=== PATIENT | male | born 1975 | race Caucasian/White ===

== ENCOUNTER 2017-04-16 14:00 | Inpatient (IN) ==
--- NOTE | 2017-04-16 15:47 | XRay Report ---
CLINICAL INFORMATION: Preop COMPARISON: None. FINDINGS:The heart size, mediastinum and pulmonary vessels are unremarkable. The lungs are clear. There are no effusions. The bones and soft tissues are within normal limits. IMPRESSION: Normal chest. Interpreted and Authenticated by: Anthony Ohara 04/16/17
[2017-04-16 16:27] LABS: Basophils # (Auto) 0 K/mcL (0.0-0.3); Basophils % (Auto) 0.3 % (0.0-2.0); Eosinophils # (Auto) 0.3 K/mcL (0.0-0.7); Eosinophils % (Auto) 2.6 % (0.0-7.0); Granulocytes % (Auto) 64.6 % (38.0-78.0); Lymphocytes # (Auto) 2.4 K/mcL (1.5-4.8); Lymphocytes % (Auto) 23.6 % (15.5-49.0); Mean Cell Volume 89.7 fL (80.0-100.0); Mean Corpuscular Hemoglobin 30.5 pg (26.0-34.0); Monocytes # (Auto) 0.9 K/mcL (0.1-0.9); Monocytes % (Auto) 8.9 % (1.0-12.0); Platelet Count 181 K/mcL (140-440); RBC 4.97 M/mcL (4.50-5.90); Red Cell Distribution Width 13.2 % (11.5-14.5)
[2017-04-16 17:13] LABS: ALT/SGPT 18 U/l (0-40); Albumin 4.2 gm/dL (3.2-5.2); Albumin/Globulin Ratio 1.4 (1.0-2.3); Alkaline Phosphatase 68 U/L (39-117); Blood Urea Nitrogen 16 mg/dl (6-20)
[2017-04-22] MEDS ORDERED: LEVOFLOXACIN 750 MG/150 ML BAG IV SCH (07:00)
[2017-04-22] MEDS ORDERED: metroNIDAZOLE 500 MG/100 ML BAG IV SCH (07:00)
[2017-04-22] MEDS ORDERED: fentaNYL 250 MCG/5 ML VIAL IV ONE (09:40)
[2017-04-22] MEDS ORDERED: HYDROmorphone 2 MG/ML SYRINGE IV ONE (09:40)
[2017-04-22] MEDS ORDERED: PROPOFOL 200 MG/20 ML VIAL IV ONE (09:40)
[2017-04-22] MEDS ORDERED: MIDAZOLAM 5 MG/5 ML VIAL IV ONE (09:40)
[2017-04-22] MEDS ORDERED: KETAMINE 100 MG/ML ML IV ONE (09:40)
[2017-04-22] MEDS ORDERED: ePHEDrine 50 MG/ML AMPUL IV ONE (09:40)
[2017-04-22] MEDS ORDERED: DEXAMETHASONE 10 MG/ML VIAL IV ONE (09:40)
[2017-04-22] MEDS ORDERED: ROCURONIUM 10 MG/ML ML IV ONE (09:40)
[2017-04-22] MEDS ORDERED: LIDOCAINE HCL/PF 100 MG/5 ML SYRINGE IV ONE (09:40)
[2017-04-22] MEDS ORDERED: METOPROLOL TARTRATE 5 MG/5 ML VIAL IV ONE (09:40)
[2017-04-22] MEDS ORDERED: ONDANSETRON 4 MG/2 ML VIAL IV ONE (09:40)
[2017-04-22] MEDS ORDERED: ONDANSETRON 4 MG/2 ML VIAL IV PRN ×2 (10:42→13:24)
[2017-04-22] MEDS ORDERED: LABETALOL 5 MG/ML ML IV PRN (10:42)
[2017-04-22] MEDS ORDERED: IPRATROPIUM/ALBUTEROL 3 ML AMPUL.NEB NEB PRN (10:42)
[2017-04-22] MEDS ORDERED: FLUMAZENIL 0.1 MG/ML ML IV PRN (10:42)
[2017-04-22] MEDS ORDERED: ePHEDrine 50 MG/ML AMPUL IV PRN (10:42)
[2017-04-22] MEDS ORDERED: fentaNYL 100 MCG/2 ML VIAL IV PRN (10:42)
[2017-04-22] MEDS ORDERED: HYDROmorphone 2 MG/ML SYRINGE IV PRN (10:42)
[2017-04-22] MEDS ORDERED: LACTATED RINGERS 250 ML IV PRN (10:42)
[2017-04-22] MEDS ORDERED: METHOCARBAMOL 1,000 MG/10 ML VIAL IV PRN (10:42)
[2017-04-22] MEDS ORDERED: METOCLOPRAMIDE 10 MG/2 ML VIAL IV PRN (10:42)
[2017-04-22] MEDS ORDERED: BENZOCAINE/MENTHOL 1 LOZENGE PO PRN (10:42)
[2017-04-22] MEDS ORDERED: METOPROLOL TARTRATE 5 MG/5 ML VIAL IV PRN (10:42)
[2017-04-22] MEDS ORDERED: MEPERIDINE 50 MG/ML SYRINGE IM PRN (10:42)
[2017-04-22] MEDS ORDERED: NALOXONE HCL 0.4 MG/ML VIAL IV PRN (10:42)
[2017-04-22] MEDS ORDERED: diphenhydrAMINE 50 MG/ML VIAL IV PRN (10:42)
[2017-04-22] MEDS ORDERED: MEPERIDINE 25 MG/ML SYRINGE IV PRN (10:42)
[2017-04-22] MEDS ORDERED: LACTATED RINGERS 1,000 ML IV SCH (10:45)
[2017-04-22] MEDS ORDERED: metroNIDAZOLE 500 MG/100 ML BAG IV ONE (10:52)
[2017-04-22] MEDS ORDERED: LEVOFLOXACIN 750 MG/150 ML BAG IV ONE (11:57)
--- NOTE | 2017-04-22 12:30 | Brief Operative Note ---
Date of procedure: 04/22/17 Pre-op diagnosis: recurrent diverticulitis Post-op diagnosis: other (recurrent diverticulitis) Procedure: SIGMOID COLECTOMY Grafts/Implants: No (J P DRAIN X1 ) Anesthesia: GETA Findings: 2 AREAS OF INFLAMMATION IN SIGMOID COLON AND MESENTERY Complications: none Surgeon: Ericka Parra Estimated blood loss (cc): 50 Specimens Removed/Pathology: other (SIGMOID COLON) Condition: stable Disposition: PACU
[2017-04-22] MEDS: 0.9 % SODIUM CHLORIDE 10 ML SYRINGE IV SCH ×2 (14:27→23:18)
[2017-04-22] MEDS: 0.9 % SODIUM CHLORIDE 1,000 ML IV SCH ×2 (14:28→23:48)
[2017-04-22] MEDS: HYDROmorphone 2 MG/ML SYRINGE IV PRN ×2 (15:00→17:18)
[2017-04-22] MEDS: METOCLOPRAMIDE 10 MG/2 ML VIAL IV SCH ×2 (18:06→23:48)
[2017-04-22] MEDS: metroNIDAZOLE 500 MG/100 ML BAG IV SCH ×2 (18:06→23:48)
[2017-04-22 19:12] LABS: ALT/SGPT 31 U/l (0-40); Albumin 3.9 gm/dL (3.2-5.2); Albumin/Globulin Ratio 1.3 (1.0-2.3); Alkaline Phosphatase 63 U/L (39-117); Bilirubin,Direct < 0.2 mg/dL (0.0-0.3); Blood Urea Nitrogen 12 mg/dl (6-20); Gamma Glutamyl Transpeptidase 44 U/L (8-61); Magnesium 1.6 mg/dL (1.6-2.5); Uric Acid 5.2 mg/dL (2.5-8.0)
[2017-04-22] MEDS: ACETAMINOPHEN 1,000 MG/100 ML BOTTLE IV PRN (19:48)
[2017-04-23] MEDS: ACETAMINOPHEN 1,000 MG/100 ML BOTTLE IV PRN ×3 (01:27→19:48)
[2017-04-23] MEDS: HYDROmorphone 2 MG/ML SYRINGE IV PRN ×3 (04:33→22:45)
[2017-04-23] MEDS: METOCLOPRAMIDE 10 MG/2 ML VIAL IV SCH ×3 (06:14→17:58)
[2017-04-23] MEDS: metroNIDAZOLE 500 MG/100 ML BAG IV SCH ×3 (06:14→17:58)
[2017-04-23 06:18] LABS: Basophils # (Auto) 0 K/mcL (0.0-0.3); Basophils % (Auto) 0.3 % (0.0-2.0); Eosinophils # (Auto) 0 K/mcL (0.0-0.7); Eosinophils % (Auto) 0 % (0.0-7.0); Granulocytes % (Auto) 80.7 % (38.0-78.0); Lymphocytes # (Auto) 1.3 K/mcL (1.5-4.8); Lymphocytes % (Auto) 9.8 % (15.5-49.0); Mean Cell Volume 90.1 fL (80.0-100.0); Mean Corpuscular HGB Conc 34.4 g/dL (31.0-36.0); Monocytes # (Auto) 1.3 K/mcL (0.1-0.9); Monocytes % (Auto) 9.2 % (1.0-12.0); Platelet Count 188 K/mcL (140-440); RBC 4.68 M/mcL (4.50-5.90); Red Cell Distribution Width 13.2 % (11.5-14.5)
[2017-04-23 06:27] LABS: ALT/SGPT 25 U/l (0-40); Albumin 3.9 gm/dL (3.2-5.2); Albumin/Globulin Ratio 1.5 (1.0-2.3); Alkaline Phosphatase 59 U/L (39-117); Bilirubin,Direct < 0.2 mg/dL (0.0-0.3); Blood Urea Nitrogen 11 mg/dl (6-20); Gamma Glutamyl Transpeptidase 40 U/L (8-61); Magnesium 1.6 mg/dL (1.6-2.5)
[2017-04-23 08:17] LABS: Band Neutrophils % 2 % (0-10); Lymphocytes % 13 % (15-49); Monocytes % (Manual) 7 % (1-12); Platelet Estimate NORMAL (NORMAL); RBC Morphology NORMAL (NORMAL); Segmented Neutrophils % 77 % (38-78)
[2017-04-23] MEDS: 0.9 % SODIUM CHLORIDE 10 ML SYRINGE IV SCH ×3 (09:38→23:56)
[2017-04-23] MEDS: 0.9 % SODIUM CHLORIDE 1,000 ML IV SCH ×3 (09:38→22:52)
[2017-04-23] MEDS: LEVOFLOXACIN 500 MG/100 ML BAG IV SCH (09:59)
[2017-04-23] MEDS: KETOROLAC 30 MG/ML VIAL IV SCH ×2 (10:08→22:45)
--- NOTE | 2017-04-23 13:13 | Operative Note ---
DATE OF OPERATION: 04/22/2017 PREOPERATIVE DIAGNOSIS: Recurrent diverticulitis. POSTOPERATIVE DIAGNOSIS: Recurrent diverticulitis. PROCEDURE: Sigmoid colectomy. SURGEON: Ericka Parra MD FINDINGS: Two areas of inflammation in the sigmoid colon and the sigmoid colon mesentery. DESCRIPTION OF PROCEDURE: The patient's abdomen was prepped and draped in a sterile field. A timeout procedure was carried out as per protocol. A midline incision was made. Exploration of the abdomen revealed polycystic liver and kidneys. The colon was somewhat redundant. There were two areas of inflammation that was noted with thickening of the pericolonic fat and mesentery and the wall of the sigmoid colon. This was in the proximal and mid sigmoid colon. The rest of the colon was unremarkable except for scattered diverticula. Small bowel was unremarkable. A Bookwalter retractor was placed and the abdomen was packed off. The sigmoid colon was mobilized along its lateral attachment and the mobilization continued into the pelvis to the proximal rectum. The mobilization extended up to the splenic flexure, though the entire splenic flexure was not mobilized. A point was chosen proximal and distal to the two inflamed areas. The mesentery was scored and these areas were divided using the contour stapler. The mesentery was then divided between Shellie clamps and the specimen was removed. Vessels were tied with 2-0 Silk suture. Irrigation was carried out. The end of the rectum was then sutured to the side of the colon. The end of the colon was stapled using a PA60 stapler so that it would have two staple lines. The end of the rectum was then opened and the back wall of the rectum was sutured to the side of the colon with 2-0 Prolene. An opening was made in the wall of the colon along the anterior tinea. Anastomosis was completed using an inner row of running, locking 2-0 Monocryl and an outer row of running 2-0 Prolene. Irrigation was carried out again. There was no evidence of leak. Sponge, needle, instrument and blade counts were verified as correct. Mesenteric defect was closed with interrupted 3-0 Silk. Gowns were changed. Final irrigation was carried out and the fluid was clear. MARIA ISABEL drain was placed in the pelvis beneath the anastomosis. The drain was brought out in the right lower quadrant. Sponge, needle, instrument and blade counts were correct. Fascia was closed using running #1 Prolene. Subcutaneous tissue was irrigated and closed with 2-0 Monocryl. Skin incision was closed with kimberly. Dressing was placed. Patient tolerated the procedure well. The drain was secured with 2-0 Nylon. Patient was awakened, extubated and transferred to the Post-Anesthetic Care Unit in stable satisfactory condition. LCS:kathrine Job ID: [id number] Doc ID: [id number] Ericka Parra M.D.
[2017-04-23] MEDS ORDERED: LORazepam 2 MG/ML VIAL IV PRN (16:35)
--- NOTE | 2017-04-23 16:40 | General Surgery Progress Note ---
Subjective Patient reports: feels better, pain is less, no flatus, no bowel movement, afebrile Narrative: Note initiated : 04/23/17 at 4:38 pm Service Date, if different from initiated Date: [] Patient: Yvan Benson 42 y/o M admitted on 04/22/17 for Segmental Left Colectomy. Chief Complaint: [Patient is stable. He is alert and awake and oriented. He has periods of increased anxiety when standing and trying to move. It does not appear to be associated with any medications. It only lasts a few minutes and then resolves. His abdominal pain is well controlled and he denies having nausea. He has been afebrile all day. His MARIA ISABEL drainage is serosanguineous.] Objective Temp Pulse Resp BP Pulse Ox 97.2 F 93 H 16 145/92 95 04/23/17 16:00 04/23/17 16:00 04/23/17 16:00 04/23/17 16:00 04/23/17 16:00 - Additional Data Intake & Output - Last 24 hours: Intake & Output 04/21/17 04/22/17 04/23/17 04/24/17 05:59 05:59 05:59 05:59 Intake Total 4220 / 4220 1400 / 1400 Output Total 2225 / 2225 1420 / 1420 Balance 1994 - Weight 246 lb 246 lb - General physical appearance well developed, no distress - Eyes PERRL - ENT no congestion - Neck no venous distension - Respiratory clear to auscultation - Cardiovascular Cardiovascular exam: Present: normal rate and rhythm, RRR, +S1, +S2. Absent: gallop, JVD, systolic murmur - Abdomen tender (Abdomen is mildly distended but with active bowel sounds; the incision looks good and the MARIA ISABEL drainage is serosanguineous) - Integumentary no rash, no growths, no abnormal pigmentation - Neurologic normal coordination, normal sensation - Musculoskeletal normal gait, normal posture - Psychiatric oriented to time, oriented to person, oriented to place, speech is normal, memory intact - Labs 04/23/17 04:41 04/23/17 04:41 Diabetes panel 04/22/17 04/23/17 Range/Units 18:13 04:41 Sodium 140 139 (133-145) mmol/L Potassium 4.3 3.7 (3.3-5.1) mmol/L Chloride 100 101 (96-108) mmol/L Carbon Dioxide 26 25 (22-30) mmol/L BUN 12 11 (6-20) mg/dl Creatinine 0.9 0.9 (0.7-1.2) mg/dl Glucose 136 H 122 H (70-105) mg/dL Calcium 8.7 8.7 (8.6-10.4) mg/dl AST 32 23 (0-37) U/l ALT 31 25 (0-40) U/l Alkaline Phosphatase 63 59 (39-117) U/L Total Protein 6.8 6.5 (5.9-8.4) gm/dL Albumin 3.9 3.9 (3.2-5.2) gm/dL Triglycerides 80 89 (<150) mg/dl Calcium panel 04/22/17 04/23/17 Range/Units 18:13 04:41 Calcium 8.7 8.7 (8.6-10.4) mg/dl Phosphorus 3.9 2.6 L (2.7-4.5) mg/dL Albumin 3.9 3.9 (3.2-5.2) gm/dL Pituitary panel 04/22/17 04/23/17 Range/Units 18:13 04:41 Sodium 140 139 (133-145) mmol/L Potassium 4.3 3.7 (3.3-5.1) mmol/L Chloride 100 101 (96-108) mmol/L Carbon Dioxide 26 25 (22-30) mmol/L BUN 12 11 (6-20) mg/dl Creatinine 0.9 0.9 (0.7-1.2) mg/dl Glucose 136 H 122 H (70-105) mg/dL Calcium 8.7 8.7 (8.6-10.4) mg/dl Adrenal panel 04/22/17 04/23/17 Range/Units 18:13 04:41 Sodium 140 139 (133-145) mmol/L Potassium 4.3 3.7 (3.3-5.1) mmol/L Chloride 100 101 (96-108) mmol/L Carbon Dioxide 26 25 (22-30) mmol/L BUN 12 11 (6-20) mg/dl Creatinine 0.9 0.9 (0.7-1.2) mg/dl Glucose 136 H 122 H (70-105) mg/dL Calcium 8.7 8.7 (8.6-10.4) mg/dl Total Bilirubin 0.5 0.6 (0.0-1.0) mg/dL AST 32 23 (0-37) U/l ALT 31 25 (0-40) U/l Alkaline Phosphatase 63 59 (39-117) U/L Total Protein 6.8 6.5 (5.9-8.4) gm/dL Albumin 3.9 3.9 (3.2-5.2) gm/dL Assessment and Plan (1) Diverticulitis large intestine w/o perforation or abscess w/o bleeding Status: Acute Assessment and plan: Clinically stable except for anxiety Plan--- will try low-dose Ativan IV Current Visit: No - Time Spent With Patient Total time spent is greater than 50% in coordination of care (as documented) at patient's floor/unit and/or counseling patient:
[2017-04-23] MEDS: PANTOPRAZOLE 40 MG VIAL IV SCH (17:25)
[2017-04-24] MEDS: METOCLOPRAMIDE 10 MG/2 ML VIAL IV SCH ×5 (01:11→23:24)
[2017-04-24] MEDS: metroNIDAZOLE 500 MG/100 ML BAG IV SCH ×5 (01:11→23:24)
[2017-04-24] MEDS: ACETAMINOPHEN 1,000 MG/100 ML BOTTLE IV PRN (03:11)
[2017-04-24 06:50] LABS: Basophils # (Auto) 0 K/mcL (0.0-0.3); Basophils % (Auto) 0.1 % (0.0-2.0); Eosinophils # (Auto) 0.1 K/mcL (0.0-0.7); Granulocytes % (Auto) 75.4 % (38.0-78.0); Lymphocytes # (Auto) 1.9 K/mcL (1.5-4.8); Lymphocytes % (Auto) 14.4 % (15.5-49.0); Mean Cell Volume 91.2 fL (80.0-100.0); Mean Corpuscular HGB Conc 33.4 g/dL (31.0-36.0); Mean Corpuscular Hemoglobin 30.4 pg (26.0-34.0); Monocytes # (Auto) 1.2 K/mcL (0.1-0.9); Monocytes % (Auto) 9.1 % (1.0-12.0); Platelet Count 163 K/mcL (140-440); RBC 4.55 M/mcL (4.50-5.90); Red Cell Distribution Width 13.1 % (11.5-14.5)
[2017-04-24] MEDS: 0.9 % SODIUM CHLORIDE 10 ML SYRINGE IV SCH ×3 (07:02→21:30)
[2017-04-24] MEDS: 0.9 % SODIUM CHLORIDE 1,000 ML IV SCH ×3 (07:02→20:45)
[2017-04-24] MEDS: PANTOPRAZOLE 40 MG VIAL IV SCH ×2 (07:02→17:27)
[2017-04-24] MEDS: KETOROLAC 30 MG/ML VIAL IV SCH ×3 (07:51→22:10)
[2017-04-24] MEDS: ACETAMINOPHEN 1,000 MG/100 ML BOTTLE IV SCH ×3 (08:49→20:45)
[2017-04-24 08:50] LABS: ALT/SGPT 19 U/l (0-40); Albumin 3.7 gm/dL (3.2-5.2); Albumin/Globulin Ratio 1.3 (1.0-2.3); Alkaline Phosphatase 63 U/L (39-117); Bilirubin,Direct < 0.2 mg/dL (0.0-0.3); Blood Urea Nitrogen 17 mg/dl (6-20); Gamma Glutamyl Transpeptidase 49 U/L (8-61); Magnesium 1.8 mg/dL (1.6-2.5); Uric Acid 5.3 mg/dL (2.5-8.0)
[2017-04-24] MEDS ORDERED: ACETAMINOPHEN 1,000 MG/100 ML BOTTLE IV SCH (09:00)
[2017-04-24] MEDS: LEVOFLOXACIN 500 MG/100 ML BAG IV SCH (09:22)
--- NOTE | 2017-04-24 11:00 | Surgical Pathology Report ---
HISTOLOGY SPECIMEN MICROSCOPIC DIAGNOSIS COLON, SIGMOID, SEGMENTAL RESECTION: -- DIVERTICULOSIS. -- MARGINS VIABLE. -- THREE PERICOLONIC LYMPH NODES WITH REACTIVE FOLLICULAR HYPERPLASIA. (DMT:willy) PROCEDURAL IMPRESSION Diverticulitis. GROSS DESCRIPTION Received in formalin labeled sigmoid, is a segmental resection of large intestine which is 19.0 cm long with a mid point diameter of 4.0 cm. Attached epiploic and mesenteric fat are up to 5.0 cm wide. Both margins are stapled. The mucosa has the usual plicated pattern and the bowel wall is up to 0.6 cm thick. Multiple diverticula are identified along the length of the segment. No perforations or pericolonic abscesses are found. Three lymph nodes, ranging from 0.2 to 0.7 cm in greatest dimension, are identified within the mesenteric fat. Hand Cutter sections are submitted as follows: A1 - margins; A2-A4 - diverticula; A5 - lymph nodes. (RAD:willy) Electronically Signed by: Truman Patrick M.D.
--- NOTE | 2017-04-24 12:14 | General Surgery Progress Note ---
Subjective Patient reports: feels better, pain is less, afebrile Narrative: Note initiated : 04/24/17 at 12:12 pm Service Date, if different from initiated Date: [] Patient: Yvan Benson 42 y/o M admitted on 04/22/17 for Segmental Left Colectomy. Chief Complaint: [Patient is stable. He still has some anxiety that is unexplained. He does not routinely have anxiety according to his family. His pain is controlled. He has intermittent nausea. He has not had bowel movement or pass gas. He has been afebrile.] Objective Temp Pulse Resp BP Pulse Ox 98.2 F 92 H 16 143/89 93 04/24/17 11:18 04/24/17 04:00 04/24/17 11:18 04/24/17 11:18 04/24/17 11:18 - Additional Data Intake & Output - Last 24 hours: Intake & Output 04/22/17 04/23/17 04/24/17 04/25/17 05:59 05:59 05:59 05:59 Intake Total 4220 / 4220 2930 / 2930 1200 / 1200 Output Total 2225 / 2225 3850 / 3850 500 / 500 Balance 1994 / 1994 -920 / -920 700 / 700 Weight 246 lb 226 lb - General physical appearance no distress - Eyes PERRL - ENT no congestion - Neck no venous distension - Respiratory normal respiratory effort, clear to auscultation - Cardiovascular Cardiovascular exam: Present: normal rate and rhythm, RRR, +S1, +S2. Absent: gallop, JVD, systolic murmur - Abdomen soft, tender (Abdomen is mildly tender along incision. MARIA ISABEL drainage is serosanguineous. His incision otherwise looks good. He has active bowel sounds ) - Integumentary no rash, no growths, no abnormal pigmentation - Neurologic normal coordination, normal sensation - Musculoskeletal normal gait, normal posture - Psychiatric oriented to time, oriented to person, oriented to place, speech is normal, memory intact, other (Mild situational anxiety) - Labs 04/24/17 04:40 04/24/17 04:40 Diabetes panel 04/24/17 Range/Units 04:40 Sodium 141 (133-145) mmol/L Potassium 3.8 (3.3-5.1) mmol/L Chloride 102 (96-108) mmol/L Carbon Dioxide 25 (22-30) mmol/L BUN 17 (6-20) mg/dl Creatinine 0.9 (0.7-1.2) mg/dl Glucose 90 (70-105) mg/dL Calcium 8.6 (8.6-10.4) mg/dl AST 20 (0-37) U/l ALT 19 (0-40) U/l Alkaline Phosphatase 63 (39-117) U/L Total Protein 6.5 (5.9-8.4) gm/dL Albumin 3.7 (3.2-5.2) gm/dL Triglycerides 98 (<150) mg/dl Calcium panel 04/24/17 Range/Units 04:40 Calcium 8.6 (8.6-10.4) mg/dl Phosphorus 2.3 L (2.7-4.5) mg/dL Albumin 3.7 (3.2-5.2) gm/dL Pituitary panel 04/24/17 Range/Units 04:40 Sodium 141 (133-145) mmol/L Potassium 3.8 (3.3-5.1) mmol/L Chloride 102 (96-108) mmol/L Carbon Dioxide 25 (22-30) mmol/L BUN 17 (6-20) mg/dl Creatinine 0.9 (0.7-1.2) mg/dl Glucose 90 (70-105) mg/dL Calcium 8.6 (8.6-10.4) mg/dl Adrenal panel 04/24/17 Range/Units 04:40 Sodium 141 (133-145) mmol/L Potassium 3.8 (3.3-5.1) mmol/L Chloride 102 (96-108) mmol/L Carbon Dioxide 25 (22-30) mmol/L BUN 17 (6-20) mg/dl Creatinine 0.9 (0.7-1.2) mg/dl Glucose 90 (70-105) mg/dL Calcium 8.6 (8.6-10.4) mg/dl Total Bilirubin 0.6 (0.0-1.0) mg/dL AST 20 (0-37) U/l ALT 19 (0-40) U/l Alkaline Phosphatase 63 (39-117) U/L Total Protein 6.5 (5.9-8.4) gm/dL Albumin 3.7 (3.2-5.2) gm/dL Assessment and Plan (1) Diverticulitis large intestine w/o perforation or abscess w/o bleeding Status: Acute Assessment and plan: Clinically stable except for anxiety Plan--- will try low-dose Ativan IV Current Visit: No - Time Spent With Patient Total time spent is greater than 50% in coordination of care (as documented) at patient's floor/unit and/or counseling patient:
[2017-04-24] MEDS ORDERED: POTASSIUM PHOSPHATE 40 MEQ in DEXTROSE 5% IN WATER 500 ML IV ONE (12:15)
[2017-04-24] MEDS: BENZOCAINE/MENTHOL 1 LOZENGE PO PRN (17:12)
[2017-04-24] MEDS: ALPRAZolam 0.5 MG TABLET PO PRN (21:34)
[2017-04-25] MEDS: ACETAMINOPHEN 1,000 MG/100 ML BOTTLE IV SCH ×4 (01:35→20:20)
[2017-04-25] MEDS: BENZOCAINE/MENTHOL 1 LOZENGE PO PRN ×4 (04:26→23:29)
[2017-04-25 05:21] LABS: Basophils # (Auto) 0 K/mcL (0.0-0.3); Basophils % (Auto) 0.4 % (0.0-2.0); Eosinophils # (Auto) 0.2 K/mcL (0.0-0.7); Eosinophils % (Auto) 1.8 % (0.0-7.0); Lymphocytes % (Auto) 17.6 % (15.5-49.0); Mean Cell Volume 90.3 fL (80.0-100.0); Mean Corpuscular HGB Conc 34.2 g/dL (31.0-36.0); Mean Corpuscular Hemoglobin 30.9 pg (26.0-34.0); Monocytes # (Auto) 1.2 K/mcL (0.1-0.9); Monocytes % (Auto) 10.2 % (1.0-12.0); Platelet Count 161 K/mcL (140-440); RBC 4.37 M/mcL (4.50-5.90); Red Cell Distribution Width 13.2 % (11.5-14.5)
[2017-04-25] MEDS: metroNIDAZOLE 500 MG/100 ML BAG IV SCH ×4 (05:35→23:29)
[2017-04-25] MEDS: METOCLOPRAMIDE 10 MG/2 ML VIAL IV SCH ×4 (05:36→23:29)
[2017-04-25] MEDS: 0.9 % SODIUM CHLORIDE 10 ML SYRINGE IV SCH ×3 (05:36→20:21)
[2017-04-25] MEDS: PANTOPRAZOLE 40 MG VIAL IV SCH ×2 (07:45→16:41)
[2017-04-25] MEDS: LEVOFLOXACIN 500 MG/100 ML BAG IV SCH (10:00)
[2017-04-25] MEDS: 0.9 % SODIUM CHLORIDE 1,000 ML IV SCH ×4 (10:07→20:21)
[2017-04-25] MEDS: KETOROLAC 30 MG/ML VIAL IV SCH ×2 (10:09→20:21)
--- NOTE | 2017-04-25 12:45 | General Surgery Progress Note ---
Subjective Patient reports: feels better, pain is less, flatus, no bowel movement, afebrile Narrative: Note initiated : 04/25/17 at 12:42 pm Service Date, if different from initiated Date: [] Patient: Yvan Benson 42 y/o M admitted on 04/22/17 for Segmental Left Colectomy. Chief Complaint: [Patient is feeling better. His pain is significantly improved. He has had multiple episodes of flatus. He denies nausea. Overall he is much improved.] Objective Temp Pulse Resp BP Pulse Ox 98.3 F 89 14 135/86 94 04/25/17 04:00 04/25/17 08:00 04/25/17 04:00 04/25/17 04:00 04/25/17 04:00 - Additional Data Intake & Output - Last 24 hours: Intake & Output 04/23/17 04/24/17 04/25/17 04/26/17 05:59 05:59 05:59 05:59 Intake Total 4220 / 4220 2930 / 2930 4120 / 4120 Output Total 2225 / 2225 3850 / 3850 3110 / 3110 Balance 1994 / 1994 -920 / -920 1010 / 1010 - Weight 246 lb 226 lb 225 lb 8 oz - Respiratory normal respiratory effort, clear to auscultation - Cardiovascular Cardiovascular exam: Present: normal rate and rhythm, RRR, +S1, +S2. Absent: JVD, systolic murmur - Abdomen soft, tender, distended (Abdomen is mildly distended; he has good active bowel sounds; MARIA ISABEL drainage is serosanguineous) - Integumentary no rash, no growths, no abnormal pigmentation - Neurologic normal coordination, normal sensation - Musculoskeletal normal gait, normal posture - Psychiatric oriented to time, oriented to person, oriented to place, speech is normal, memory intact - Labs 04/25/17 04:16 04/24/17 04:40 Assessment and Plan (1) Diverticulitis large intestine w/o perforation or abscess w/o bleeding Status: Acute Assessment and plan: Patient has had an early return of intestinal function We will continue to monitor over the next day before discontinuing his nasogastric tube Current Visit: No - Time Spent With Patient Total time spent is greater than 50% in coordination of care (as documented) at patient's floor/unit and/or counseling patient:
[2017-04-25] MEDS: ALPRAZolam 0.5 MG TABLET PO PRN (20:20)
[2017-04-26] MEDS: 0.9 % SODIUM CHLORIDE 1,000 ML IV SCH ×4 (01:14→19:57)
[2017-04-26] MEDS: ACETAMINOPHEN 1,000 MG/100 ML BOTTLE IV SCH ×4 (03:45→21:25)
[2017-04-26] MEDS: metroNIDAZOLE 500 MG/100 ML BAG IV SCH ×5 (05:26→20:17)
[2017-04-26] MEDS: 0.9 % SODIUM CHLORIDE 10 ML SYRINGE IV SCH ×3 (05:26→21:26)
[2017-04-26] MEDS: METOCLOPRAMIDE 10 MG/2 ML VIAL IV SCH ×3 (05:26→18:06)
[2017-04-26 07:09] LABS: Basophils # (Auto) 0 K/mcL (0.0-0.3); Basophils % (Auto) 0.2 % (0.0-2.0); Eosinophils # (Auto) 0.2 K/mcL (0.0-0.7); Eosinophils % (Auto) 1.7 % (0.0-7.0); Granulocytes % (Auto) 76.6 % (38.0-78.0); Lymphocytes # (Auto) 1.6 K/mcL (1.5-4.8); Lymphocytes % (Auto) 12.8 % (15.5-49.0); Mean Cell Volume 90.6 fL (80.0-100.0); Mean Corpuscular Hemoglobin 30.8 pg (26.0-34.0); Monocytes # (Auto) 1.1 K/mcL (0.1-0.9); Monocytes % (Auto) 8.7 % (1.0-12.0); Platelet Count 183 K/mcL (140-440); Red Cell Distribution Width 13.1 % (11.5-14.5)
[2017-04-26] MEDS: PANTOPRAZOLE 40 MG VIAL IV SCH ×2 (07:30→18:06)
[2017-04-26] MEDS: BENZOCAINE/MENTHOL 1 LOZENGE PO PRN ×3 (07:30→22:12)
[2017-04-26 07:44] LABS: ALT/SGPT 15 U/l (0-40); Albumin 3.4 gm/dL (3.2-5.2); Albumin/Globulin Ratio 1.1 (1.0-2.3); Alkaline Phosphatase 62 U/L (39-117); Bilirubin,Direct < 0.2 mg/dL (0.0-0.3); Blood Urea Nitrogen 12 mg/dl (6-20); Gamma Glutamyl Transpeptidase 44 U/L (8-61); Magnesium 1.8 mg/dL (1.6-2.5); Uric Acid 6.2 mg/dL (2.5-8.0)
[2017-04-26] MEDS: KETOROLAC 30 MG/ML VIAL IV SCH ×3 (09:26→21:26)
[2017-04-26] MEDS ORDERED: POTASSIUM PHOSPHATE 40 MEQ in DEXTROSE 5% IN WATER 500 ML IV ONE (10:30)
[2017-04-26] MEDS: LEVOFLOXACIN 500 MG/100 ML BAG IV SCH (10:48)
--- NOTE | 2017-04-26 12:28 | General Surgery Progress Note ---
Subjective Patient reports: feels better, pain is less, afebrile (Patient is doing well. He is not having as much flatus as he had on yesterday but his abdomen is softer and his abdominal pain is better. He still has active bowel sounds. He has remained afebrile) Narrative: Note initiated : 04/26/17 at 12:26 pm Service Date, if different from initiated Date: [] Patient: Yvan Benson 42 y/o M admitted on 04/22/17 for Segmental Left Colectomy. Chief Complaint: [] Objective Temp Pulse Resp BP Pulse Ox 97.8 F 90 16 126/81 97 04/26/17 11:30 04/26/17 08:00 04/26/17 11:30 04/26/17 11:30 04/26/17 11:30 - Additional Data Intake & Output - Last 24 hours: Intake & Output 04/24/17 04/25/17 04/26/17 04/27/17 05:59 05:59 05:59 05:59 Intake Total 2930 / 2930 4820 / 4820 2700 / 2700 640 / 640 Output Total 3850 / 3850 3110 / 3110 3905 / 3905 870 / 870 Balance -920 / -920 1710 / 1710 -1205 / -1205 -230 / -230 Weight 226 lb 225 lb 8 oz 227 lb - General physical appearance no distress - ENT no congestion - Neck no venous distension - Respiratory normal respiratory effort, clear to auscultation - Cardiovascular Cardiovascular exam: Present: normal rate and rhythm, RRR, +S1, +S2. Absent: gallop, JVD, systolic murmur - Abdomen soft, tender, distended (Abdomen is mildly distended but soft; he has active bowel sounds; incision looks good with minimal drainage; he has serosanguineous drainage in his MARIA ISABEL) - Integumentary no rash, no growths, no abnormal pigmentation - Neurologic normal coordination, normal sensation - Musculoskeletal normal gait, normal posture - Psychiatric oriented to time, oriented to person, oriented to place, speech is normal, memory intact - Labs 04/26/17 05:45 04/26/17 05:45 Diabetes panel 04/26/17 Range/Units 05:45 Sodium 140 (133-145) mmol/L Potassium 3.4 (3.3-5.1) mmol/L Chloride 103 (96-108) mmol/L Carbon Dioxide 21 L (22-30) mmol/L BUN 12 (6-20) mg/dl Creatinine 0.8 (0.7-1.2) mg/dl Glucose 84 (70-105) mg/dL Calcium 8.5 L (8.6-10.4) mg/dl AST 16 (0-37) U/l ALT 15 (0-40) U/l Alkaline Phosphatase 62 (39-117) U/L Total Protein 6.4 (5.9-8.4) gm/dL Albumin 3.4 (3.2-5.2) gm/dL Triglycerides 93 (<150) mg/dl Calcium panel 04/26/17 Range/Units 05:45 Calcium 8.5 L (8.6-10.4) mg/dl Phosphorus 2.6 L (2.7-4.5) mg/dL Albumin 3.4 (3.2-5.2) gm/dL Pituitary panel 04/26/17 Range/Units 05:45 Sodium 140 (133-145) mmol/L Potassium 3.4 (3.3-5.1) mmol/L Chloride 103 (96-108) mmol/L Carbon Dioxide 21 L (22-30) mmol/L BUN 12 (6-20) mg/dl Creatinine 0.8 (0.7-1.2) mg/dl Glucose 84 (70-105) mg/dL Calcium 8.5 L (8.6-10.4) mg/dl Adrenal panel 04/26/17 Range/Units 05:45 Sodium 140 (133-145) mmol/L Potassium 3.4 (3.3-5.1) mmol/L Chloride 103 (96-108) mmol/L Carbon Dioxide 21 L (22-30) mmol/L BUN 12 (6-20) mg/dl Creatinine 0.8 (0.7-1.2) mg/dl Glucose 84 (70-105) mg/dL Calcium 8.5 L (8.6-10.4) mg/dl Total Bilirubin 0.6 (0.0-1.0) mg/dL AST 16 (0-37) U/l ALT 15 (0-40) U/l Alkaline Phosphatase 62 (39-117) U/L Total Protein 6.4 (5.9-8.4) gm/dL Albumin 3.4 (3.2-5.2) gm/dL Assessment and Plan (1) Diverticulitis large intestine w/o perforation or abscess w/o bleeding Status: Acute Assessment and plan: Patient has had an early return of intestinal function We will continue to monitor over the next day before discontinuing his nasogastric tube Current Visit: No - Time Spent With Patient Total time spent is greater than 50% in coordination of care (as documented) at patient's floor/unit and/or counseling patient:
[2017-04-26] MEDS: ALPRAZolam 0.5 MG TABLET PO PRN (21:26)
[2017-04-27] MEDS: METOCLOPRAMIDE 10 MG/2 ML VIAL IV SCH ×5 (00:47→23:52)
[2017-04-27] MEDS: metroNIDAZOLE 500 MG/100 ML BAG IV SCH ×5 (00:47→23:52)
[2017-04-27] MEDS: ACETAMINOPHEN 1,000 MG/100 ML BOTTLE IV SCH ×5 (02:48→20:23)
[2017-04-27] MEDS: 0.9 % SODIUM CHLORIDE 10 ML SYRINGE IV SCH ×3 (05:41→21:53)
[2017-04-27 06:46] LABS: Basophils # (Auto) 0 K/mcL (0.0-0.3); Basophils % (Auto) 0.2 % (0.0-2.0); Eosinophils # (Auto) 0.3 K/mcL (0.0-0.7); Eosinophils % (Auto) 2.3 % (0.0-7.0); Granulocytes % (Auto) 74.8 % (38.0-78.0); Lymphocytes # (Auto) 1.9 K/mcL (1.5-4.8); Lymphocytes % (Auto) 13.6 % (15.5-49.0); Mean Cell Volume 89.9 fL (80.0-100.0); Mean Corpuscular HGB Conc 34.7 g/dL (31.0-36.0); Mean Corpuscular Hemoglobin 31.2 pg (26.0-34.0); Monocytes # (Auto) 1.3 K/mcL (0.1-0.9); Monocytes % (Auto) 9.1 % (1.0-12.0); Platelet Count 196 K/mcL (140-440); RBC 4.36 M/mcL (4.50-5.90); Red Cell Distribution Width 12.7 % (11.5-14.5)
[2017-04-27 07:17] LABS: ALT/SGPT 16 U/l (0-40); Albumin 3.5 gm/dL (3.2-5.2); Albumin/Globulin Ratio 1.2 (1.0-2.3); Alkaline Phosphatase 67 U/L (39-117); Bilirubin,Direct < 0.2 mg/dL (0.0-0.3); Blood Urea Nitrogen 11 mg/dl (6-20); Gamma Glutamyl Transpeptidase 43 U/L (8-61); Magnesium 1.9 mg/dL (1.6-2.5); Uric Acid 6.2 mg/dL (2.5-8.0)
[2017-04-27] MEDS: PANTOPRAZOLE 40 MG VIAL IV SCH ×2 (07:32→17:49)
[2017-04-27] MEDS: 0.9 % SODIUM CHLORIDE 1,000 ML IV SCH ×4 (08:20→21:53)
--- NOTE | 2017-04-27 08:25 | XRay Report ---
CLINICAL INFORMATION: Postsurgical follow-up. Status post partial colectomy for treatment of diverticulitis TECHNIQUE: Supine and upright abdomen COMPARISON: Previous CT scan dated 04/17/2017 FINDINGS: Esophagogastric tube in the distal stomach or proximal duodenum. There are surgical kimberly in a vertical midline lower abdomen and pelvic incision. There is a surgical drain in the pelvis. There is gas within the colon. No dilated gas-filled small bowel. No evidence for mechanical small bowel obstruction or significant ileus. No significant pneumoperitoneum. No biliary or portal venous gas. No pneumatosis. IMPRESSION: Negative postoperative abdomen. No evidence for significant ileus or obstruction Interpreted and Authenticated by: Anthony Bustamante 04/27/17
[2017-04-27] MEDS: LEVOFLOXACIN 500 MG/100 ML BAG IV SCH ×2 (09:45→10:38)
--- NOTE | 2017-04-27 15:51 | General Surgery Progress Note ---
Subjective Patient reports: feels better, pain is less, no flatus, no bowel movement, afebrile Narrative: Note initiated : 04/27/17 at 3:49 pm Service Date, if different from initiated Date: [] Patient: Yvan Benson 42 y/o M admitted on 04/22/17 for Segmental Left Colectomy. Chief Complaint: [Patient is stable though he is not having a lot of flatus he does not have any significant distention. Abdominal series shows gas throughout his colon without any small bowel distention.] Objective Temp Pulse Resp BP Pulse Ox 96.6 F L 92 H 18 127/72 97 04/27/17 12:00 04/27/17 12:00 04/27/17 12:00 04/27/17 12:00 04/27/17 12:00 - Additional Data Intake & Output - Last 24 hours: Intake & Output 04/25/17 04/26/17 04/27/17 04/28/17 05:59 05:59 05:59 05:59 Intake Total 4820 / 4820 2700 / 2700 4245 / 4245 563 / 563 Output Total 3110 / 3110 3905 / 3905 3983 / 3983 1935 / 1935 Balance 1710 / 1710 -1205 / -1205 262 / 262 -1372 / -1372 Weight 225 lb 8 oz 227 lb 223 lb 8 oz 223 lb 8 oz - General physical appearance no distress - Eyes PERRL - ENT no congestion - Neck no venous distension - Respiratory normal respiratory effort, clear to auscultation - Cardiovascular Cardiovascular exam: Present: normal rate and rhythm, RRR, +S1, +S2. Absent: JVD - Abdomen soft, tender, bowel sounds (He has good active bowel sounds without distention. MARIA ISABEL drainage is still mildly bloody) - Integumentary no rash, no growths, no abnormal pigmentation - Musculoskeletal normal gait, normal posture - Psychiatric oriented to time, oriented to person, oriented to place, speech is normal, memory intact - Labs 04/27/17 04:55 04/27/17 04:55 Diabetes panel 04/27/17 Range/Units 04:55 Sodium 139 (133-145) mmol/L Potassium 3.2 L (3.3-5.1) mmol/L Chloride 102 (96-108) mmol/L Carbon Dioxide 23 (22-30) mmol/L BUN 11 (6-20) mg/dl Creatinine 0.8 (0.7-1.2) mg/dl Glucose 87 (70-105) mg/dL Calcium 8.5 L (8.6-10.4) mg/dl AST 18 (0-37) U/l ALT 16 (0-40) U/l Alkaline Phosphatase 67 (39-117) U/L Total Protein 6.4 (5.9-8.4) gm/dL Albumin 3.5 (3.2-5.2) gm/dL Triglycerides 96 (<150) mg/dl Calcium panel 04/27/17 Range/Units 04:55 Calcium 8.5 L (8.6-10.4) mg/dl Phosphorus 2.3 L (2.7-4.5) mg/dL Albumin 3.5 (3.2-5.2) gm/dL Pituitary panel 04/27/17 Range/Units 04:55 Sodium 139 (133-145) mmol/L Potassium 3.2 L (3.3-5.1) mmol/L Chloride 102 (96-108) mmol/L Carbon Dioxide 23 (22-30) mmol/L BUN 11 (6-20) mg/dl Creatinine 0.8 (0.7-1.2) mg/dl Glucose 87 (70-105) mg/dL Calcium 8.5 L (8.6-10.4) mg/dl Adrenal panel 04/27/17 Range/Units 04:55 Sodium 139 (133-145) mmol/L Potassium 3.2 L (3.3-5.1) mmol/L Chloride 102 (96-108) mmol/L Carbon Dioxide 23 (22-30) mmol/L BUN 11 (6-20) mg/dl Creatinine 0.8 (0.7-1.2) mg/dl Glucose 87 (70-105) mg/dL Calcium 8.5 L (8.6-10.4) mg/dl Total Bilirubin 0.5 (0.0-1.0) mg/dL AST 18 (0-37) U/l ALT 16 (0-40) U/l Alkaline Phosphatase 67 (39-117) U/L Total Protein 6.4 (5.9-8.4) gm/dL Albumin 3.5 (3.2-5.2) gm/dL Assessment and Plan (1) Diverticulitis large intestine w/o perforation or abscess w/o bleeding Status: Acute Assessment and plan: Patient has had an early return of intestinal function We will wait for the a.m. to restart clear liquids. Nasogastric tube was discontinued Current Visit: No - Time Spent With Patient Total time spent is greater than 50% in coordination of care (as documented) at patient's floor/unit and/or counseling patient:
[2017-04-28] MEDS: ACETAMINOPHEN 1,000 MG/100 ML BOTTLE IV SCH ×4 (03:31→23:30)
[2017-04-28] MEDS: METOCLOPRAMIDE 10 MG/2 ML VIAL IV SCH ×3 (06:00→18:19)
[2017-04-28] MEDS: 0.9 % SODIUM CHLORIDE 1,000 ML IV SCH ×3 (06:00→13:19)
[2017-04-28] MEDS: 0.9 % SODIUM CHLORIDE 10 ML SYRINGE IV SCH ×3 (06:00→23:31)
[2017-04-28] MEDS: metroNIDAZOLE 500 MG/100 ML BAG IV SCH ×2 (06:00→12:12)
[2017-04-28 07:02] LABS: Basophils # (Auto) 0 K/mcL (0.0-0.3); Basophils % (Auto) 0.3 % (0.0-2.0); Eosinophils # (Auto) 0.3 K/mcL (0.0-0.7); Eosinophils % (Auto) 2.6 % (0.0-7.0); Granulocytes % (Auto) 71.3 % (38.0-78.0); Mean Cell Volume 89.9 fL (80.0-100.0); Mean Corpuscular HGB Conc 34.8 g/dL (31.0-36.0); Mean Corpuscular Hemoglobin 31.3 pg (26.0-34.0); Monocytes % (Auto) 8.8 % (1.0-12.0); Platelet Count 206 K/mcL (140-440); Red Cell Distribution Width 12.7 % (11.5-14.5)
[2017-04-28] MEDS: PANTOPRAZOLE 40 MG VIAL IV SCH ×2 (07:09→18:19)
[2017-04-28 07:24] LABS: ALT/SGPT 19 U/l (0-40); Albumin 3.4 gm/dL (3.2-5.2); Albumin/Globulin Ratio 1.1 (1.0-2.3); Alkaline Phosphatase 62 U/L (39-117); Bilirubin,Direct < 0.2 mg/dL (0.0-0.3); Blood Urea Nitrogen 9 mg/dl (6-20); Gamma Glutamyl Transpeptidase 44 U/L (8-61); Magnesium 1.9 mg/dL (1.6-2.5); Uric Acid 6.3 mg/dL (2.5-8.0)
--- NOTE | 2017-04-28 07:35 | XRay Report ---
CLINICAL INFORMATION: Postsurgical follow-up. History of ileus TECHNIQUE: AP supine and upright abdomen COMPARISON: Previous abdomen dated 04/27/2017. Previous CT scan dated 04/17/2017 FINDINGS: No change in position of surgical drain in the pelvis. There are skin kimberly in a vertical midline incision. There are surgical clips present. Interval removal of esophagogastric tube There continues to be gas within the colon. No dilated gas-filled small bowel. No air-fluid levels. No pneumoperitoneum. No biliary or portal venous gas. Bowel gas pattern is unremarkable. IMPRESSION: Unremarkable bowel gas pattern as above Interpreted and Authenticated by: Anthony Bustamante 04/28/17
[2017-04-28] MEDS: LEVOFLOXACIN 500 MG/100 ML BAG IV SCH (09:11)
--- NOTE | 2017-04-28 14:37 | General Surgery Progress Note ---
Subjective Patient reports: feels better, pain is less, tolerating a regular diet, flatus, bowel movement, afebrile Narrative: Note initiated : 04/28/17 at 2:35 pm Service Date, if different from initiated Date: [] Patient: Yvan Benson 42 y/o M admitted on 04/22/17 for Segmental Left Colectomy. Chief Complaint: [Patient is doing much better. He has had multiple bowel movements. He denies nausea. He is tolerated his liquid diet without difficulty. His pain is well controlled.] Objective Temp Pulse Resp BP Pulse Ox 97.8 F 85 16 137/88 96 04/28/17 11:31 04/28/17 03:51 04/28/17 11:31 04/28/17 11:31 04/28/17 11:31 - Additional Data Intake & Output - Last 24 hours: Intake & Output 04/26/17 04/27/17 04/28/17 04/29/17 05:59 05:59 05:59 05:59 Intake Total 2700 / 2700 4245 / 4245 5003 / 5003 1700 / 1700 Output Total 3905 / 3905 3983 / 3983 3460 / 3460 3475 / 3475 Balance -1205 / -1205 262 / 262 1543 / 1543 -1775 / -1775 Weight 227 lb 223 lb 8 oz 219 lb 8 oz - General physical appearance no distress, no pain - Eyes PERRL - ENT no congestion - Neck no venous distension - Respiratory normal respiratory effort, clear to auscultation - Cardiovascular Cardiovascular exam: Present: normal rate and rhythm, RRR, +S1, +S2. Absent: JVD - Abdomen soft, non tender (Abdomen is minimally distended and he has good active bowel sounds. His incision looks good. He still has bloody drainage in his MARIA ISABEL.) - Integumentary no rash, no growths, no abnormal pigmentation - Neurologic normal coordination, normal sensation - Musculoskeletal normal gait, normal posture - Psychiatric oriented to time, oriented to person, oriented to place, speech is normal, memory intact - Labs 04/28/17 06:25 04/28/17 06:25 Diabetes panel 04/28/17 Range/Units 06:25 Sodium 139 (133-145) mmol/L Potassium 3.2 L (3.3-5.1) mmol/L Chloride 103 (96-108) mmol/L Carbon Dioxide 23 (22-30) mmol/L BUN 9 (6-20) mg/dl Creatinine 0.8 (0.7-1.2) mg/dl Glucose 105 (70-105) mg/dL Calcium 8.5 L (8.6-10.4) mg/dl AST 20 (0-37) U/l ALT 19 (0-40) U/l Alkaline Phosphatase 62 (39-117) U/L Total Protein 6.4 (5.9-8.4) gm/dL Albumin 3.4 (3.2-5.2) gm/dL Triglycerides 98 (<150) mg/dl Calcium panel 04/28/17 Range/Units 06:25 Calcium 8.5 L (8.6-10.4) mg/dl Phosphorus 1.9 L (2.7-4.5) mg/dL Albumin 3.4 (3.2-5.2) gm/dL Pituitary panel 04/28/17 Range/Units 06:25 Sodium 139 (133-145) mmol/L Potassium 3.2 L (3.3-5.1) mmol/L Chloride 103 (96-108) mmol/L Carbon Dioxide 23 (22-30) mmol/L BUN 9 (6-20) mg/dl Creatinine 0.8 (0.7-1.2) mg/dl Glucose 105 (70-105) mg/dL Calcium 8.5 L (8.6-10.4) mg/dl Adrenal panel 04/28/17 Range/Units 06:25 Sodium 139 (133-145) mmol/L Potassium 3.2 L (3.3-5.1) mmol/L Chloride 103 (96-108) mmol/L Carbon Dioxide 23 (22-30) mmol/L BUN 9 (6-20) mg/dl Creatinine 0.8 (0.7-1.2) mg/dl Glucose 105 (70-105) mg/dL Calcium 8.5 L (8.6-10.4) mg/dl Total Bilirubin 0.4 (0.0-1.0) mg/dL AST 20 (0-37) U/l ALT 19 (0-40) U/l Alkaline Phosphatase 62 (39-117) U/L Total Protein 6.4 (5.9-8.4) gm/dL Albumin 3.4 (3.2-5.2) gm/dL Assessment and Plan (1) Diverticulitis large intestine w/o perforation or abscess w/o bleeding Status: Acute Assessment and plan: Advance to soft diet Saline lock IV Possible discharge tomorrow Current Visit: No - Time Spent With Patient Total time spent is greater than 50% in coordination of care (as documented) at patient's floor/unit and/or counseling patient:
[2017-04-28] MEDS ORDERED: oxyCODONE/APAP 10/325MG TABLET PO PRN (17:51)
[2017-04-28] MEDS: BENZOCAINE/MENTHOL 1 LOZENGE PO PRN (19:13)
[2017-04-28] MEDS ORDERED: POTASSIUM PHOSPHATE 40 MEQ in DEXTROSE 5% IN WATER 500 ML IV ONE (20:14)
[2017-04-28] MEDS ORDERED: WATER IV ONE (20:45)
[2017-04-28] MEDS ORDERED: POTASSIUM PHOSPHATE IV ONE (20:45)
[2017-04-28] MEDS ORDERED: DEXTROSE 5% IV ONE (20:45)
[2017-04-28] MEDS ORDERED: POTASSIUM PHOSPHATE 22 MEQ/5 ML VIAL IV ONE (21:00)
[2017-04-29] MEDS: METOCLOPRAMIDE 10 MG/2 ML VIAL IV SCH ×3 (00:29→12:01)
[2017-04-29] MEDS: ACETAMINOPHEN 1,000 MG/100 ML BOTTLE IV SCH ×3 (04:37→13:02)
[2017-04-29] MEDS: 0.9 % SODIUM CHLORIDE 10 ML SYRINGE IV SCH ×2 (05:49→12:02)
[2017-04-29 07:32] LABS: Basophils # (Auto) 0 K/mcL (0.0-0.3); Basophils % (Auto) 0.1 % (0.0-2.0); Eosinophils # (Auto) 0.3 K/mcL (0.0-0.7); Eosinophils % (Auto) 2.7 % (0.0-7.0); Granulocytes % (Auto) 69.2 % (38.0-78.0); Lymphocytes # (Auto) 1.7 K/mcL (1.5-4.8); Lymphocytes % (Auto) 17.7 % (15.5-49.0); Mean Cell Volume 89.7 fL (80.0-100.0); Mean Corpuscular HGB Conc 34.6 g/dL (31.0-36.0); Mean Corpuscular Hemoglobin 31.1 pg (26.0-34.0); Monocytes % (Auto) 10.3 % (1.0-12.0); Platelet Count 220 K/mcL (140-440); RBC 4.26 M/mcL (4.50-5.90); Red Cell Distribution Width 13.1 % (11.5-14.5)
[2017-04-29] MEDS: PANTOPRAZOLE 40 MG VIAL IV SCH (07:53)
[2017-04-29 07:59] LABS: ALT/SGPT 19 U/l (0-40); Albumin 3.4 gm/dL (3.2-5.2); Albumin/Globulin Ratio 1.2 (1.0-2.3); Alkaline Phosphatase 63 U/L (39-117); Bilirubin,Direct < 0.2 mg/dL (0.0-0.3); Blood Urea Nitrogen 6 mg/dl (6-20); Gamma Glutamyl Transpeptidase 45 U/L (8-61); Magnesium 1.9 mg/dL (1.6-2.5); Uric Acid 4.7 mg/dL (2.5-8.0)
--- NOTE | 2017-04-29 12:39 | Discharge Summary ---
Providers - Providers Patient information: Note initiated : 04/29/17 at 12:36 pm Service Date, if different from initiated Date: [] Patient: Yvan Benson 42 y/o M admitted on 04/22/17 for Segmental Left Colectomy. Chief Complaint: [] Date of admission: 04/22/17 Discharge date: 04/29/17 Attending physician: Ericka Parra Hospitalization Hospital course: 42-year-old male with a history of recurrent diverticulitis. The patient had multiple episodes that were nonresponsive and follow-up CT revealed continued changes of inflammation. He was started on antibiotics and scheduled for segmental colectomy. He underwent segmental colectomy on 22 April. 2 areas of inflammation were removed and there was another area in the mid descending colon that was mildly inflamed but not felt to be severe enough for removal. It was decided that I would continue him on antibiotics in the postoperative period to try to take care of this area. He had an uneventful procedure and had a slightly prolonged postoperative course. After he started having flatus his nasogastric tube was clamped and he had a bowel movement the next day. The tube was removed and his diet was advanced without difficulty. He had no other perioperative problems and is now stable for discharge home. Discharge diagnosis: Recurrent diverticulitis Reason for admission: Recurrent diverticulitis postoperative Procedures: Segmental left colectomy Complications: None Exam Temp Pulse Resp BP Pulse Ox 97.6 F 80 16 110/72 91 04/29/17 11:12 04/29/17 04:00 04/29/17 11:12 04/29/17 11:12 04/29/17 11:12 - General physical appearance well developed, well nourished, no distress - Eyes PERRL, normal ocular movement - ENT normal pinna, normal nares, normal mucosa, no hearing loss, no congestion - Head Head exam IM: Present: atraumatic, normocephalic - Neck no masses, no bruits, trachea midline, no lymphadectomy, no venous distension - Cardiovascular Cardiovascular exam IM: Present: normal rate and rhythm - Respiratory normal expansion, normal respiratory effort, clear to percussion, clear to auscultation - Abdomen Abdomen: Present: soft, tender (Abdomen is mildly tender and mildly distended. He has good active bowel sounds. His incision looks good. He has a moderate amount of serosanguineous drainage still and his MARIA ISABEL drain is to be left intact) , bowel sounds Hernia: Present: none - Genitourinary Present: normal penis with no external lesions - Integumentary Present: no rash, no growths, no abnormal pigmentation - Neurologic Present: normal coordination, normal sensation - Musculoskeletal Present: normal gait, normal posture - Psychiatric Present: oriented to time, oriented to person, oriented to place, speech is normal, memory intact Discharge Plan - Patient/Caregiver Discharge Instructions Activity: increase activity as tolerated Diet: Regular Diet Additional Instructions: Leave dressing and MARIA ISABEL drain in place until follow up appointment with Dr. Parra. Keep dressing clean and intact. May shower. Do not use lotions or soaps over dressing or scrub dressing. Pat dry. Prescriptions: oxyCODONE/APAP [Percocet 10-325Mg] 1 tab PO Q4HP PRN #30 tablet PRN Reason: Pain - Follow up Plan Follow up with: Ericka Parra MD [Physician] - 05/07/17 7:45 am Disposition: Home, Self-Care Prognosis: Good Rehab Potential: Good I certify that the patient requires SNF services.: No Overall status at discharge: patient is not back to baseline Pending Studies Resuscitation Status Full Code Diet GI Soft/Transitional Start Thu 12 Dinner Alprazolam (Xanax) 0.5 mg PO HSP PRN PRN Reason: Insomnia Last Admin: 04/26/17 21:26 Dose: 0.5 mg Admin: 04/25/17 20:20 Dose: 0.5 mg Admin: 04/24/17 21:34 Dose: 0.5 mg Hydromorphone HCl (Dilaudid) 1 mg IV Q2HP PRN PRN Reason: Pain Last Admin: 04/23/17 22:45 Dose: 1 mg Admin: 04/23/17 14:55 Dose: 1 mg Admin: 04/23/17 04:33 Dose: 1 mg Admin: 04/22/17 17:18 Dose: 1 mg Admin: 04/22/17 15:00 Dose: 1 mg Acetaminophen (Ofirmev) 1,000 mg in 100 mls @ 200 mls/hr IV Q6H BEATRIZ Last Admin: 04/29/17 07:59 Dose: Admin: 04/29/17 04:37 Dose: Not Given Admin: 04/28/17 23:30 Dose: Admin: 04/28/17 18:18 Dose: Not Given Admin: 04/28/17 08:40 Dose: 200 mls/hr Infusion: 04/28/17 04:01 Dose: 200 mls/hr Admin: 04/28/17 03:31 Dose: 200 mls/hr Infusion: 04/27/17 20:53 Dose: 200 mls/hr Admin: 04/27/17 20:23 Dose: 200 mls/hr Infusion: 04/27/17 15:13 Dose: 200 mls/hr Admin: 04/27/17 14:43 Dose: 200 mls/hr Infusion: 04/27/17 09:14 Dose: 200 mls/hr Infusion: 04/27/17 08:44 Dose: 200 mls/hr Admin: 04/27/17 08:44 Dose: 200 mls/hr Admin: 04/27/17 08:43 Dose: 200 mls/hr Infusion: 04/27/17 03:18 Dose: 200 mls/hr Admin: 04/27/17 02:48 Dose: 200 mls/hr Infusion: 04/26/17 21:55 Dose: 200 mls/hr Admin: 04/26/17 21:25 Dose: 200 mls/hr Infusion: 04/26/17 17:00 Dose: 200 mls/hr Admin: 04/26/17 14:51 Dose: 200 mls/hr Infusion: 04/26/17 08:53 Dose: 200 mls/hr Admin: 04/26/17 08:23 Dose: 200 mls/hr Infusion: 04/26/17 04:15 Dose: 200 mls/hr Admin: 04/26/17 03:45 Dose: 200 mls/hr Infusion: 04/25/17 20:50 Dose: 200 mls/hr Admin: 04/25/17 20:20 Dose: 200 mls/hr Infusion: 04/25/17 16:10 Dose: 200 mls/hr Admin: 04/25/17 15:33 Dose: 200 mls/hr Infusion: 04/25/17 09:38 Dose: 200 mls/hr Admin: 04/25/17 09:08 Dose: 200 mls/hr Infusion: 04/25/17 02:35 Dose: 200 mls/hr Admin: 04/25/17 01:35 Dose: 200 mls/hr Infusion: 04/24/17 21:15 Dose: 200 mls/hr Admin: 04/24/17 20:45 Dose: 200 mls/hr Infusion: 04/24/17 15:40 Dose: 200 mls/hr Admin: 04/24/17 15:10 Dose: 200 mls/hr Infusion: 04/24/17 09:19 Dose: 200 mls/hr Admin: 04/24/17 08:49 Dose: 200 mls/hr Lorazepam (Ativan) 0.5 mg IV Q6HP PRN PRN Reason: ANXIETY/SEDATION Last Admin: 04/23/17 17:40 Dose: 0.5 mg Metoclopramide HCl (Reglan) 10 mg IV Q6 BEATRIZ Last Admin: 04/29/17 12:01 Dose: 10 mg Admin: 04/29/17 05:18 Dose: 10 mg Admin: 04/29/17 00:29 Dose: 10 mg Admin: 04/28/17 18:19 Dose: 10 mg Admin: 04/28/17 12:12 Dose: 10 mg Admin: 04/28/17 06:00 Dose: 10 mg Admin: 04/27/17 23:52 Dose: 10 mg Admin: 04/27/17 17:50 Dose: 10 mg Admin: 04/27/17 12:11 Dose: 10 mg Admin: 04/27/17 05:41 Dose: 10 mg Admin: 04/27/17 00:47 Dose: 10 mg Admin: 04/26/17 18:06 Dose: 10 mg Admin: 04/26/17 12:55 Dose: 10 mg Admin: 04/26/17 05:26 Dose: 10 mg Admin: 04/25/17 23:29 Dose: 10 mg Admin: 04/25/17 18:34 Dose: 10 mg Admin: 04/25/17 12:43 Dose: 10 mg Admin: 04/25/17 05:36 Dose: 10 mg Admin: 04/24/17 23:24 Dose: 10 mg Admin: 04/24/17 17:27 Dose: 10 mg Admin: 04/24/17 11:56 Dose: 10 mg Admin: 04/24/17 06:16 Dose: 10 mg Admin: 04/24/17 01:11 Dose: 10 mg Admin: 04/23/17 17:58 Dose: 10 mg Admin: 04/23/17 13:30 Dose: 10 mg Admin: 04/23/17 06:14 Dose: 10 mg Admin: 04/22/17 23:48 Dose: 10 mg Admin: 04/22/17 18:06 Dose: 10 mg Oxycodone/Acetaminophen (Percocet 10-325mg) 1 tab PO Q4HP PRN PRN Reason: Pain Last Admin: 04/28/17 21:09 Dose: 1 tab Pantoprazole Sodium (Protonix) 40 mg IV BIDAC [facility] Last Admin: 04/29/17 07:53 Dose: 40 mg Admin: 04/28/17 18:19 Dose: 40 mg Admin: 04/28/17 07:09 Dose: 40 mg Admin: 04/27/17 17:49 Dose: 40 mg Admin: 04/27/17 07:32 Dose: 40 mg Admin: 04/26/17 18:06 Dose: 40 mg Admin: 04/26/17 07:30 Dose: 40 mg Admin: 04/25/17 16:41 Dose: 40 mg Admin: 04/25/17 07:45 Dose: 40 mg Admin: 04/24/17 17:27 Dose: 40 mg Admin: 04/24/17 07:02 Dose: 40 mg Admin: 04/23/17 17:25 Dose: 40 mg Sodium Chloride (Saline Flush) 10 ml IV Q8 BEATRIZ Last Admin: 04/29/17 12:02 Dose: 10 ml Admin: 04/29/17 05:49 Dose: 10 ml Admin: 04/28/17 23:31 Dose: 10 ml Admin: 04/28/17 13:20 Dose: Not Given Admin: 04/28/17 06:00 Dose: Not Given Admin: 04/27/17 21:53 Dose: Not Given Admin: 04/27/17 14:52 Dose: Not Given Admin: 04/27/17 05:41 Dose: Not Given Admin: 04/26/17 21:26 Dose: Not Given Admin: 04/26/17 14:18 Dose: 10 ml Admin: 04/26/17 05:26 Dose: Not Given Admin: 04/25/17 20:21 Dose: Not Given Admin: 04/25/17 15:33 Dose: 10 ml Admin: 04/25/17 05:36 Dose: 10 ml Admin: 04/24/17 21:30 Dose: 10 ml Admin: 04/24/17 13:56 Dose: Not Given Admin: 04/24/17 07:02 Dose: 10 ml Admin: 04/23/17 23:56 Dose: 10 ml Admin: 04/23/17 14:12 Dose: Not Given Admin: 04/23/17 09:38 Dose: Not Given Admin: 04/22/17 23:18 Dose: Not Given Admin: 04/22/17 14:27 Dose: Not Given Throat Lozenges (Cepacol) 1 lozenge PO PRN PRN PRN Reason: Sore Throat Last Admin: 04/28/17 19:13 Dose: 1 lozenge Admin: 04/26/17 22:12 Dose: 1 lozenge Admin: 04/26/17 14:51 Dose: 1 lozenge Admin: 04/26/17 07:30 Dose: 1 lozenge Admin: 04/25/17 23:29 Dose: 1 lozenge Admin: 04/25/17 18:37 Dose: 1 lozenge Admin: 04/25/17 16:39 Dose: 1 lozenge Admin: 04/25/17 04:26 Dose: 1 lozenge Admin: 04/24/17 17:12 Dose: 1 lozenge Shift Summary 04/29/17 04:30 Shift Summary by Mary Ruvalcaba Patient up ad maria isabel, tolerating a soft diet. Pt has no c/o pain, did try one [id number] at HS, tolerated well. Did hold Beatriz IV Tylenol at 2100 initially d/t starting on Percocet, although patient refused 0300 dose stating "I have no pain at all and really don't need it". Midline incision with kimberly looks good with minimal drainage, Dressing change done yesterday. MARIA ISABEL with 22ml serosanguineous fluid. Pt's phos level 1.9, given total 80Meq K+ Phos in 1000ml D5W. IV to LFA now SL. May get to go home today. Initialized on 04/29/17 04:30 - END OF NOTE
--- NOTE | 2017-04-29 13:04 | Discharge Summary ---
Providers - Providers Patient information: Note initiated : 04/29/17 at 12:35 pm Service Date, if different from initiated Date: [] Patient: Yvan Benson 42 y/o M admitted on 04/22/17 for Segmental Left Colectomy. Chief Complaint: [] Exam Temp Pulse Resp BP Pulse Ox 97.6 F 80 16 110/72 91 04/29/17 11:12 04/29/17 04:00 04/29/17 11:12 04/29/17 11:12 04/29/17 11:12 Discharge Plan - Patient/Caregiver Discharge Instructions Additional Instructions: Leave dressing and MARIA ISABEL drain in place until follow up appointment with Dr. Parra. Keep dressing clean and intact. May shower. Do not use lotions or soaps over dressing or scrub dressing. Pat dry. No soaking in tub/pool. Increase activity as tolerated. Regular soft diet. No heavy lifting. Return to ER for uncontrolled pain, nausea and/or vomiting, fever, chills, shortness of breath, excessive bleeding, redness, unable to go to the bathroom. Prescriptions: oxyCODONE/APAP [Percocet 10-325Mg] 1 tab PO Q4HP PRN #30 tab PRN Reason: Pain - Follow up Plan Follow up with: Ericka Parra MD [Physician] - 05/07/17 7:45 am Disposition: Home, Self-Care Prognosis: Good Pending Studies Resuscitation Status Full Code Diet GI Soft/Transitional Start Thu 12 Dinner Alprazolam (Xanax) 0.5 mg PO HSP PRN PRN Reason: Insomnia Last Admin: 04/26/17 21:26 Dose: 0.5 mg Admin: 04/25/17 20:20 Dose: 0.5 mg Admin: 04/24/17 21:34 Dose: 0.5 mg Hydromorphone HCl (Dilaudid) 1 mg IV Q2HP PRN PRN Reason: Pain Last Admin: 04/23/17 22:45 Dose: 1 mg Admin: 04/23/17 14:55 Dose: 1 mg Admin: 04/23/17 04:33 Dose: 1 mg Admin: 04/22/17 17:18 Dose: 1 mg Admin: 04/22/17 15:00 Dose: 1 mg Acetaminophen (Ofirmev) 1,000 mg in 100 mls @ 200 mls/hr IV Q6H BEATRIZ Last Admin: 04/29/17 07:59 Dose: Admin: 04/29/17 04:37 Dose: Not Given Admin: 04/28/17 23:30 Dose: Admin: 04/28/17 18:18 Dose: Not Given Admin: 04/28/17 08:40 Dose: 200 mls/hr Infusion: 04/28/17 04:01 Dose: 200 mls/hr Admin: 04/28/17 03:31 Dose: 200 mls/hr Infusion: 04/27/17 20:53 Dose: 200 mls/hr Admin: 04/27/17 20:23 Dose: 200 mls/hr Infusion: 04/27/17 15:13 Dose: 200 mls/hr Admin: 04/27/17 14:43 Dose: 200 mls/hr Infusion: 04/27/17 09:14 Dose: 200 mls/hr Infusion: 04/27/17 08:44 Dose: 200 mls/hr Admin: 04/27/17 08:44 Dose: 200 mls/hr Admin: 04/27/17 08:43 Dose: 200 mls/hr Infusion: 04/27/17 03:18 Dose: 200 mls/hr Admin: 04/27/17 02:48 Dose: 200 mls/hr Infusion: 04/26/17 21:55 Dose: 200 mls/hr Admin: 04/26/17 21:25 Dose: 200 mls/hr Infusion: 04/26/17 17:00 Dose: 200 mls/hr Admin: 04/26/17 14:51 Dose: 200 mls/hr Infusion: 04/26/17 08:53 Dose: 200 mls/hr Admin: 04/26/17 08:23 Dose: 200 mls/hr Infusion: 04/26/17 04:15 Dose: 200 mls/hr Admin: 04/26/17 03:45 Dose: 200 mls/hr Infusion: 04/25/17 20:50 Dose: 200 mls/hr Admin: 04/25/17 20:20 Dose: 200 mls/hr Infusion: 04/25/17 16:10 Dose: 200 mls/hr Admin: 04/25/17 15:33 Dose: 200 mls/hr Infusion: 04/25/17 09:38 Dose: 200 mls/hr Admin: 04/25/17 09:08 Dose: 200 mls/hr Infusion: 04/25/17 02:35 Dose: 200 mls/hr Admin: 04/25/17 01:35 Dose: 200 mls/hr Infusion: 04/24/17 21:15 Dose: 200 mls/hr Admin: 04/24/17 20:45 Dose: 200 mls/hr Infusion: 04/24/17 15:40 Dose: 200 mls/hr Admin: 04/24/17 15:10 Dose: 200 mls/hr Infusion: 04/24/17 09:19 Dose: 200 mls/hr Admin: 04/24/17 08:49 Dose: 200 mls/hr Lorazepam (Ativan) 0.5 mg IV Q6HP PRN PRN Reason: ANXIETY/SEDATION Last Admin: 04/23/17 17:40 Dose: 0.5 mg Metoclopramide HCl (Reglan) 10 mg IV Q6 BEATRIZ Last Admin: 04/29/17 12:01 Dose: 10 mg Admin: 04/29/17 05:18 Dose: 10 mg Admin: 04/29/17 00:29 Dose: 10 mg Admin: 04/28/17 18:19 Dose: 10 mg Admin: 04/28/17 12:12 Dose: 10 mg Admin: 04/28/17 06:00 Dose: 10 mg Admin: 04/27/17 23:52 Dose: 10 mg Admin: 04/27/17 17:50 Dose: 10 mg Admin: 04/27/17 12:11 Dose: 10 mg Admin: 04/27/17 05:41 Dose: 10 mg Admin: 04/27/17 00:47 Dose: 10 mg Admin: 04/26/17 18:06 Dose: 10 mg Admin: 04/26/17 12:55 Dose: 10 mg Admin: 04/26/17 05:26 Dose: 10 mg Admin: 04/25/17 23:29 Dose: 10 mg Admin: 04/25/17 18:34 Dose: 10 mg Admin: 04/25/17 12:43 Dose: 10 mg Admin: 04/25/17 05:36 Dose: 10 mg Admin: 04/24/17 23:24 Dose: 10 mg Admin: 04/24/17 17:27 Dose: 10 mg Admin: 04/24/17 11:56 Dose: 10 mg Admin: 04/24/17 06:16 Dose: 10 mg Admin: 04/24/17 01:11 Dose: 10 mg Admin: 04/23/17 17:58 Dose: 10 mg Admin: 04/23/17 13:30 Dose: 10 mg Admin: 04/23/17 06:14 Dose: 10 mg Admin: 04/22/17 23:48 Dose: 10 mg Admin: 04/22/17 18:06 Dose: 10 mg Oxycodone/Acetaminophen (Percocet 10-325mg) 1 tab PO Q4HP PRN PRN Reason: Pain Last Admin: 04/28/17 21:09 Dose: 1 tab Pantoprazole Sodium (Protonix) 40 mg IV BIDAC [facility] Last Admin: 04/29/17 07:53 Dose: 40 mg Admin: 04/28/17 18:19 Dose: 40 mg Admin: 04/28/17 07:09 Dose: 40 mg Admin: 04/27/17 17:49 Dose: 40 mg Admin: 04/27/17 07:32 Dose: 40 mg Admin: 04/26/17 18:06 Dose: 40 mg Admin: 04/26/17 07:30 Dose: 40 mg Admin: 04/25/17 16:41 Dose: 40 mg Admin: 04/25/17 07:45 Dose: 40 mg Admin: 04/24/17 17:27 Dose: 40 mg Admin: 04/24/17 07:02 Dose: 40 mg Admin: 04/23/17 17:25 Dose: 40 mg Sodium Chloride (Saline Flush) 10 ml IV Q8 BEATRIZ Last Admin: 04/29/17 12:02 Dose: 10 ml Admin: 04/29/17 05:49 Dose: 10 ml Admin: 04/28/17 23:31 Dose: 10 ml Admin: 04/28/17 13:20 Dose: Not Given Admin: 04/28/17 06:00 Dose: Not Given Admin: 04/27/17 21:53 Dose: Not Given Admin: 04/27/17 14:52 Dose: Not Given Admin: 04/27/17 05:41 Dose: Not Given Admin: 04/26/17 21:26 Dose: Not Given Admin: 04/26/17 14:18 Dose: 10 ml Admin: 04/26/17 05:26 Dose: Not Given Admin: 04/25/17 20:21 Dose: Not Given Admin: 04/25/17 15:33 Dose: 10 ml Admin: 04/25/17 05:36 Dose: 10 ml Admin: 04/24/17 21:30 Dose: 10 ml Admin: 04/24/17 13:56 Dose: Not Given Admin: 04/24/17 07:02 Dose: 10 ml Admin: 04/23/17 23:56 Dose: 10 ml Admin: 04/23/17 14:12 Dose: Not Given Admin: 04/23/17 09:38 Dose: Not Given Admin: 04/22/17 23:18 Dose: Not Given Admin: 04/22/17 14:27 Dose: Not Given Throat Lozenges (Cepacol) 1 lozenge PO PRN PRN PRN Reason: Sore Throat Last Admin: 04/28/17 19:13 Dose: 1 lozenge Admin: 04/26/17 22:12 Dose: 1 lozenge Admin: 04/26/17 14:51 Dose: 1 lozenge Admin: 04/26/17 07:30 Dose: 1 lozenge Admin: 04/25/17 23:29 Dose: 1 lozenge Admin: 04/25/17 18:37 Dose: 1 lozenge Admin: 04/25/17 16:39 Dose: 1 lozenge Admin: 04/25/17 04:26 Dose: 1 lozenge Admin: 04/24/17 17:12 Dose: 1 lozenge Shift Summary 04/29/17 04:30 Shift Summary by Mary Ruvalcaba Patient up ad maria isabel, tolerating a soft diet. Pt has no c/o pain, did try one [id number] at HS, tolerated well. Did hold Beatriz IV Tylenol at 2100 initially d/t starting on Percocet, although patient refused 0300 dose stating "I have no pain at all and really don't need it". Midline incision with kimberly looks good with minimal drainage, Dressing change done yesterday. MARIA ISABEL with 22ml serosanguineous fluid. Pt's phos level 1.9, given total 80Meq K+ Phos in 1000ml D5W. IV to LFA now SL. May get to go home today. Initialized on 04/29/17 04:30 - END OF NOTE
== END 2017-04-29 14:45 | disposition home or self-care (01) | DRG 331 ==
LOC: MEDSUR 04-22 06:58
PROVIDERS: ADMIT Family Medicine Adult Medicine; ATTEND Family Medicine Adult Medicine